=== PATIENT | female | born 1950 | race Caucasian/White ===

== ENCOUNTER → 2017-08-16 | Outpatient (CLI) | payer OTHER ==
[~2017-08-16] VITALS: Ht 162.6 cm; Wt 81.6 kg
[~2017-08-16] MED LIST: MOBIC15 MG PO; PRILOSEC 10MG C10 MG PO; PROZAC20 MG PO; SIMVASTATIN40 MG PO; TIROSINT125 MCG PO
--- NOTE | ~2017-08-16 | CATHLAB ---
[facility] [address] [place] [address] INVASIVE PROCEDURE REPORT Name: JESUS ALBERTO DE LA GARZA Room #: REG [facility] [id number] Admission: 08/16/17 Attend Phys: Chago Cotter Discharge: Date of : 52 Date of Service: 08/16/17 1307 Report #: [id number] THIS REPORT FOR: //name// APPROVED REPORT Patient Details Patient Status: Out-Patient Room #: The patient is a 66 year-old female Event Personnel Chago Gleason Inventory Specialist, Manolo Jimenez RN, Loyda Sullivan Greenwood, Christine RTMarylin Monitor, Desean Steinberg Monitor Procedures Performed Left Heart Cath w/or w/o Coronaries [id number] [facility], supervision of conscious sedation Indication Abnormal ECG, Positive stress test Procedure Narrative The Right Groin^ was infiltrated with 1% Lidocaine subcutaneous anesthesia. A PINNACLE 4FR Sheath #[id number] sheath was inserted into the RFA^. Coronary angiography was performed using coronary diagnostic catheters. The right coronary system was accessed and visualized with a JR4 catheter. The left coronary system was accessed and visualized with a JL4 catheter. Left ventricular/Aortic Valve gradient assessed via catheter pullback. Hemostasis was obtained with manual pressure following sheath removal without any complications. There was no hematoma. Intraoperative Conscious Sedation Sedation start time: 11.04 Case end Time: 11.15 Versed mg Fluoro Time: 3.00 minutes Dose: 412 mGy Contrast Type and Amount: Omnipaque 45 ml Coronary Angiography The patient's coronary anatomy is right dominant. Diagnostic Cath [facility] [address] [place] [address] INVASIVE PROCEDURE REPORT Name: JESUS ALBERTO DE LA GARZA Room #: REG CL Janay#: [id number] Admission: 08/16/17 Attend Phys: Chago Cotter Discharge: Date of : 52 Date of Service: 08/16/17 1307 Report #: [id number] Left Main Normal origin and caliber bifurcates left anterior descending left circumflex free of high-grade disease LAD Small-caliber type I vessel which courses in the anterior interventricular sulcus tapering towards the apex and terminating as a small less than half an millimeter vessel has minimal luminal irregularities but no high-grade obstructive lesions Diagonal 1 Small-caliber vessel short length free of high-grade disease Circumflex Moderate caliber vessel of normal origin with only minimal luminal irregularities as it courses laterally and posteriorly terminating as a lateral wall marginal branch. A small terminal portion supplies a posterior atrial wall no high-grade lesions present Right Coronary Order to large caliber vessel normal origin and courses in the AV groove giving rise to 2 small marginal branches. The proximal and mid course only has luminal irregularities but no significant obstructive lesions are noted. A moderate caliber posterior descending artery rate rises free of high-grade disease in the right coronary terminates is a small posterior lateral branch R PDA Moderate size vessel without significant stenosis noted Left Ventriculography Left Ventriculography was not performed. Hemodynamics The aortic pressure is 137/73 mmHg with a mean of 99 mmHg. The left ventricular pressure is 145/12 mmHg with a mean of mmHg. The left ventricular end diastolic pressure is 33 mmHg. Conclusion 1. Essentially normal coronary arteries with only mild luminal irregularities noted 2. Normal hemodynamics Recommendations Cardiac Risk Reduction Program <ELECTRONICALLY SIGNED> By: Chago Gleason MD 08/16/17 1307 1307 1307 Chago Gleason MD /INF
[2017-08-16 08:45] VITALS: BP 142/71
== END ==
LOC: CATH 08:15
DX: I77.89 Other specified disorders of arteries and arterioles (principal); E78.5 Hyperlipidemia, unspecified; E03.9 Hypothyroidism, unspecified; Z98.41 Cataract extraction status, right eye; Z98.42 Cataract extraction status, left eye; Z96.1 Presence of intraocular lens; Z98.0 Intestinal bypass and anastomosis status; Z87.891 Personal history of nicotine dependence; Z98.890 Other specified postprocedural states; Z90.49 Acquired absence of other specified parts of digestive tract; Z79.899 Other long term (current) drug therapy